=== PATIENT | female | born 1960 | race African-American/Black ===

== ENCOUNTER 2016-10-15 17:58 | Inpatient (IN) | payer BC ==
[~2016-10-15] VITALS: Ht 156.2 cm; Wt 78.5 kg
[2016-10-15] MEDS ORDERED: MORPHINE SULFATE 4 MG/ML CPJ (NOT FOR IM USE) IV STA (18:38)
[2016-10-15] MEDS ORDERED: ONDANSETRON HCL 4MG/2ML VIAL IV STA (18:38)
[2016-10-15] MEDS ORDERED: MAGNESIUM/ALUMINUM HYDROXIDE/SIMETHICONE 30ML UDC PO ONE (18:45)
[2016-10-15] MEDS ORDERED: FAMOTIDINE 20MG/2ML VIAL IV ONE (18:45)
[2016-10-15 19:02] LABS: BASOPHILS % 1.5 % (0.0-2.0); EOSINOPHILS % 3.1 % (0.0-5.0); HEMATOCRIT. 34.2 % (36.0-48.0); HEMOGLOBIN. 11.5 g/dL (12.0-16.0); LYMPHOCYTES % 27.2 % (20.0-50.0); MEAN CORPUSCULAR HEMOGLOBIN 31.1 pg (28.0-32.0); MEAN CORPUSCULAR VOLUME 92.9 fL (81.0-99.0); MEAN PLATELET VOLUME 7.8 fl (7.4-10.4); MONOCYTES % 9.2 % (2.0-8.0); PLATELET 310 x1000/uL (130-400); RED BLOOD CELL COUNT 3.69 mill/uL (4.2-5.4); RED CELL DISTRIBUTION WIDTH 14.8 % (11.6-14.6)
[2016-10-15 19:10] LABS: CARBON DIOXIDE 26 mEq/L (21-32); CHLORIDE 104 mEq/L (98-107); D-DIMER 0.6 mg/L FEU (<0.50); PARTIAL THROMBOPLASTIN TIME 25.8 sec (23.4-31.0)
[2016-10-15 19:17] LABS: TROPONIN I < 0.02 ng/mL (0.00-0.04)
[2016-10-15] MEDS ORDERED: CLONIDINE 0.1MG TABLET PO ONE (20:15)
[2016-10-15] MEDS ORDERED: ASPIRIN 81MG TABLET PO ONE (20:30)
[2016-10-15] MEDS ORDERED: LORAZEPAM 2MG/ML CPJ IV ONE (20:45)
[2016-10-15] MEDS ORDERED: MORPHINE SULFATE 4 MG/ML CPJ (NOT FOR IM USE) IV ONE (21:15)
[2016-10-15] MEDS ORDERED: ONDANSETRON HCL 4MG/2ML VIAL IV ONE (21:15)
[2016-10-15] MEDS ORDERED: ATEN100T PO (22:37)
[2016-10-15] MEDS ORDERED: HYDR12.529 PO (22:37)
[2016-10-15 22:54] VITALS: BP 149/92
[2016-10-16] MEDS ORDERED: SODIUM CHLORIDE 0.45% 1,000 ML IV SCH
[2016-10-16] MEDS ORDERED: CLONIDINE 0.1MG TABLET PO PRN
[2016-10-16] MEDS ORDERED: HYDROCODONE/ACETAMINOPHEN 5/325MG TABLET PO PRN (00:30)
[2016-10-16 04:00] VITALS: BP 140/89
[2016-10-16] MEDS: ONDANSETRON HCL 4MG/2ML VIAL IV PRN ×2 (04:03→17:37)
[2016-10-16 05:45] LABS: BASOPHILS % 0.7 % (0.0-2.0); EOSINOPHILS % 0.1 % (0.0-5.0); HEMATOCRIT. 29.8 % (36.0-48.0); LYMPHOCYTES % 10.4 % (20.0-50.0); MEAN CORPUSCULAR HEMOGLOBIN 31.3 pg (28.0-32.0); MEAN PLATELET VOLUME 7.7 fl (7.4-10.4); MONOCYTES % 4.3 % (2.0-8.0); NEUTROPHILS % 84.5 % (40.0-76.0); PLATELET 259 x1000/uL (130-400); RED BLOOD CELL COUNT 3.21 mill/uL (4.2-5.4); RED CELL DISTRIBUTION WIDTH 14.5 % (11.6-14.6)
[2016-10-16] MEDS: PANTOPRAZOLE 40MG DR TABLET PO SCH (06:15)
[2016-10-16 06:28] LABS: CREATINE KINASE 427 IU/L (26-192); CREATINE KINASE MB FRACTION 1.9 ng/mL (0.5-3.6); TROPONIN I < 0.02 ng/mL (0.00-0.04)
[2016-10-16 07:34] VITALS: BP 141/90
[2016-10-16] MEDS: ATENOLOL 100 MG TABLET PO SCH (08:31)
[2016-10-16] MEDS: ASPIRIN 325MG EC TABLET PO SCH (08:31)
[2016-10-16 12:30] VITALS: BP 159/89
[2016-10-16] MEDS ORDERED: REGADENOSON 0.4 MG/5 ML IV ONE (14:15)
[2016-10-16 15:30] LABS: CARBON DIOXIDE 26 mEq/L (21-32); CHLORIDE 103 mEq/L (98-107); CREATINE KINASE 387 IU/L (26-192); CREATINE KINASE MB FRACTION 2.2 ng/mL (0.5-3.6); TROPONIN I < 0.02 ng/mL (0.00-0.04)
[2016-10-16 16:00] VITALS: BP 136/79
[2016-10-16 20:00] VITALS: BP 148/94
[2016-10-16 23:23] LABS: CREATINE KINASE 337 IU/L (26-192); TROPONIN I < 0.02 ng/mL (0.00-0.04)
[2016-10-17] VITALS: BP 145/91
[2016-10-17 04:00] VITALS: BP 143/89
[2016-10-17] MEDS: PANTOPRAZOLE 40MG DR TABLET PO SCH (06:19)
[2016-10-17 06:29] LABS: BASOPHILS % 0.7 % (0.0-2.0); EOSINOPHILS % 3.7 % (0.0-5.0); HEMATOCRIT. 32.1 % (36.0-48.0); HEMOGLOBIN. 10.6 g/dL (12.0-16.0); LYMPHOCYTES % 31.5 % (20.0-50.0); MEAN CORPUSCULAR HEMOGLOBIN 30.8 pg (28.0-32.0); MEAN CORPUSCULAR VOLUME 93.1 fL (81.0-99.0); MEAN PLATELET VOLUME 7.9 fl (7.4-10.4); MONOCYTES % 10.4 % (2.0-8.0); NEUTROPHILS % 53.7 % (40.0-76.0); PLATELET 265 x1000/uL (130-400); RED BLOOD CELL COUNT 3.45 mill/uL (4.2-5.4); RED CELL DISTRIBUTION WIDTH 14.4 % (11.6-14.6)
[2016-10-17 08:04] VITALS: BP 149/95
[2016-10-17] MEDS: ATENOLOL 100 MG TABLET PO SCH (08:13)
[2016-10-17] MEDS: ASPIRIN 325MG EC TABLET PO SCH (08:13)
[2016-10-17] MEDS ORDERED: LORAZEPAM 1MG TABLET PO PRN (10:15)
[2016-10-17] MEDS ORDERED: REGADENOSON 0.4 MG/5 ML IV ONE (11:34)
[2016-10-17 12:30] VITALS: BP 140/88
[2016-10-17 13:10] VITALS: BP 140/88
[2016-10-17] MEDS ORDERED: ATORVASTATIN CALCIUM 10MG TABLET PO SCH (21:00)
[2016-10-18] MEDS ORDERED: FAMOTIDINE 20MG TABLET PO SCH (09:00)
== END 2016-10-17 15:40 | disposition home or self-care (01) | DRG 313 ==
LOC: EDBEDREQTM 20:27 → EDBEDREQ 20:27 → ER 20:39 → ENRESERV 20:54 → INTOOBSV 22:30 → OBSVTOIN 22:30 → 6WST 22:30
PROVIDERS: ADMIT Internal Medicine; ATTEND Internal Medicine
DX: R07.89 Other chest pain (principal); I12.9 Hypertensive chronic kidney disease with stage 1 through stage 4 chronic kidney disease, or unspecified chronic kidney disease; D64.9 Anemia, unspecified; E78.5 Hyperlipidemia, unspecified; N18.9 Chronic kidney disease, unspecified; Z80.1 Family history of malignant neoplasm of trachea, bronchus and lung; Z82.49 Family history of ischemic heart disease and other diseases of the circulatory system; Z83.3 Family history of diabetes mellitus; Z86.73 Personal history of transient ischemic attack (TIA), and cerebral infarction without residual deficits; Z87.891 Personal history of nicotine dependence; Z98.891 History of uterine scar from previous surgery
CPT/HCPCS: 36415; 71010; 71250; 76770; 78452; 78582; 80048; 80053; 80061; 82550; 82553; 83036; 83690; 83735; 83880; 84443; 84484; 85025; 85379; 85610; 85730; 93005; 93017; 93306; 96374; 96375; 96376; 99285; A9500; A9558; J2060; J2270; J2405; J2785; J3490

== ENCOUNTER 2021-06-23 16:57 | Emergency (ER) | payer BC ==
[~2021-06-23] VITALS: Ht 167.6 cm; Wt 73.0 kg
[~2021-06-23 16:57] MED LIST: ATEN100T PO
[2021-06-23 17:13] VITALS: BP 119/74
== END 2021-06-23 18:37 | disposition left against medical advice (07) ==
LOC: ER 16:57
DX: M79.661 Pain in right lower leg (principal); I12.0 Hypertensive chronic kidney disease with stage 5 chronic kidney disease or end stage renal disease; N18.6 End stage renal disease; Z99.2 Dependence on renal dialysis
CPT/HCPCS: 99283

== ENCOUNTER 2023-09-15 12:24 | Emergency (ER) | payer BC ==
[~2023-09-15] VITALS: Ht 162.6 cm; Wt 60.0 kg
[2023-09-15 12:34] VITALS: BP 116/57; PULSE 82; RESP 16; TEMP 98; O2SAT 99
[2023-09-15] MEDS: ALPRAZOLAM 0.5 MG TABLET PO ONE (13:41)
[2023-09-15 14:35] LABS: BASOPHILS % 0.7 % (0.0-2.0); EOSINOPHILS % 0.9 % (0.0-5.0); HEMATOCRIT. 39.2 % (36.0-48.0); HEMOGLOBIN. 12.5 g/dL (12.0-16.0); LYMPHOCYTES % 32.2 % (20.0-50.0); MEAN CORPUSCULAR HEMOGLOBIN 28.5 pg (28.0-32.0); MEAN CORPUSCULAR HGB CONC 31.9 g/dL (31.0-37.0); MEAN CORPUSCULAR VOLUME 89.3 fL (81.0-99.0); MEAN PLATELET VOLUME 8.2 fl (7.4-10.4); MONOCYTES % 6.4 % (2.0-8.0); NEUTROPHILS % 59.8 % (40.0-76.0); PLATELET 234 x1000/uL (130-400); RED BLOOD CELL COUNT 4.39 mill/uL (4.2-5.4); RED CELL DISTRIBUTION WIDTH 18.4 % (11.6-14.6); WHITE BLOOD COUNT 4.3 x1000/uL (4.5-11.0)
[2023-09-15 14:40] LABS: CHLORIDE 96 mEq/L (98-107); POTASSIUM 3.6 mEq/L (3.5-5.1); SODIUM 135 mEq/L (136-145)
[2023-09-15 14:41] LABS: CALCIUM 9.4 mg/dL (8.7-10.4); CARBON DIOXIDE 31 mEq/L (21-32)
[2023-09-15 14:46] LABS: CREATININE 4.9 mg/dL (0.6-1.0); GLUCOSE 111 mg/dL (70-105); UREA NITROGEN BLOOD 46 mg/dL (9-23)
[2023-09-15 14:48] LABS: ALANINE AMINOTRANSFERASE 37 IU/L (10-49); ALBUMIN 4.3 g/dL (3.2-4.8); ASPARTATE AMINOTRANSFERASE 70 IU/L (<34); BILIRUBIN TOTAL 0.2 mg/dL (0.1-1.0); PROTEIN TOTAL 7.1 g/dL (6.0-8.3)
[2023-09-15 14:59] LABS: BILIRUBIN DIRECT < 0.1 mg/dL (<=3.0)
[2023-09-15 15:02] LABS: TROPONIN I HIGH SENSITIVITY 145 ng/L (3.0-34)
== END 2023-09-15 15:11 | disposition left against medical advice (07) ==
LOC: ER 12:26
DX: F41.9 Anxiety disorder, unspecified (principal); R51.9 Headache, unspecified; I12.0 Hypertensive chronic kidney disease with stage 5 chronic kidney disease or end stage renal disease; N18.6 End stage renal disease; Z99.2 Dependence on renal dialysis
CPT/HCPCS: 36415; 71045; 80048; 80076; 83880; 84484; 85025; 93005; 99285